=== PATIENT | female | born 1990 | race Two or more races ===

== ENCOUNTER 2022-04-17 07:42 | Day surgery (SDC) | payer OTHER ==
[~2022-04-17] VITALS: Ht 165.1 cm; Wt 57.2 kg
[2022-04-17] MEDS ORDERED: TRAM1TAB98 PO (13:20)
[2022-04-17] MEDS ORDERED: COLACE100 MG PO (13:20)
== END 2022-04-17 15:45 | disposition home or self-care (01) ==
LOC: CIR.AMB 07:42
PROVIDERS: ATTEND Surgery
DX: K64.8 Other hemorrhoids (principal); K62.89 Other specified diseases of anus and rectum; K64.1 Second degree hemorrhoids; K64.4 Residual hemorrhoidal skin tags

== ENCOUNTER 2022-04-20 17:11 | Emergency (ER) | payer OTHER ==
[~2022-04-20] VITALS: Ht 167.6 cm; Wt 59.0 kg
[~2022-04-20 17:11] MED LIST: COLACE100 MG PO; TRAM1TAB98 PO
== END 2022-04-20 23:28 | disposition home or self-care (01) ==
LOC: ER 17:11
DX: K62.89 Other specified diseases of anus and rectum (principal); R42 Dizziness and giddiness; M79.605 Pain in left leg; M79.604 Pain in right leg; R11.2 Nausea with vomiting, unspecified

== ENCOUNTER 2023-10-19 11:24 | Emergency (ER) | payer OTHER ==
[~2023-10-19] VITALS: Ht 165.1 cm; Wt 68.0 kg
[2023-10-19 12:24] LABS: HEMOGLOBIN 12.6 g/dL (12.0-15.00); MEAN CELL VOLUME 89.8 fL (80.00-100.00); MEAN CORPUSCULAR HEMOGLOBIN 31.4 pg (27.00-32.0); MEAN CORPUSCULAR HGB CONC 34.9 g/dl (32.0-36.0); PLATELET COUNT 258 K/uL (150-450); RED BLOOD COUNT 4.01 M/uL (4.00-6.00); RED CELL DISTRIBUTION WIDTH 13.8 % (11.5-14.5)
[2023-10-19 12:43] LABS: INR 1.01; PARTIAL THROMBOPLASTIN TIME 29.7 SECONDS (22.0-34.0)
[2023-10-19 12:46] LABS: CALCIUM 9.3 mg/dL (8.5-10.1); CREATININE SERUM 0.57 mg/dL (0.55-1.02); GFR 122.15; POTASSIUM 4.42 mEq/L (3.5-5.1)
[2023-10-19 13:11] LABS: PH,URINE 5.5 (5.0-8.0); URINE APPEARANCE Clear; URINE BILIRRUBIN Negative (NEGATIVE); URINE BLOOD Negative; URINE COLOR Yellow; URINE GLUCOSE Negative (NEGATIVE); URINE KETONE Trace (NEGATIVE); URINE LEUKOCYTE Small; URINE NITRATE Negative; URINE PROTEIN Negative (NEGATIVE); URINE UROBILINOGEN 0.2 E.U./dl
[2023-10-19 13:15] LABS: URINE BACTERIA 1485.3 uL (0.0-1933); URINE EPITHELIAL CELLS 29.9 uL (0.0-38.8); URINE RBC 2.7 uL (0.0-20.8); URINE WBC 40.3 uL (0.0-23.2)
[2023-10-19 13:43] LABS: URINE CAST 0.15 uL (0.0-1.40)
== END 2023-10-19 17:06 | disposition home or self-care (01) ==
LOC: ER 11:26
PROVIDERS: Emergency Medicine
DX: O20.9 Hemorrhage in early pregnancy, unspecified (principal); Z3A.10 10 weeks gestation of pregnancy

== ENCOUNTER → 2023-11-10 10:54 | Outpatient (CLI) | payer OTHER | END | disposition home or self-care (01) | LOC: PRENATAL 10:54 | PROVIDERS: ATTEND Obstetrics & Gynecology Maternal & Fetal Medicine | DX: O36.80X0 Pregnancy with inconclusive fetal viability, not applicable or unspecified (principal); Z36.82 Encounter for antenatal screening for nuchal translucency; Z36.9 Encounter for antenatal screening, unspecified; Z14.8 Genetic carrier of other disease; Z3A.13 13 weeks gestation of pregnancy ==

== ENCOUNTER 2023-12-15 12:48 | Emergency (ER) | payer OTHER ==
[~2023-12-15] VITALS: Ht 165.1 cm; Wt 68.0 kg
[2023-12-15 13:23] VITALS: BP 104/69; O2SAT 98
[2023-12-15] MEDS ORDERED: PRENA1 TRUE CO1 EACH (13:23)
[2023-12-15] MEDS ORDERED: FOLIC ACID20 MG (13:23)
[2023-12-15] MEDS ORDERED: FAMOtidine 10 MG/ML (4ML VIAL) IV STA (14:18)
[2023-12-15] MEDS ORDERED: 0.9 % SODIUM CHLORIDE 1,000 ML IV STA (14:19)
[2023-12-15] MEDS ORDERED: ONDANSETRON HCL 2 MG/ML VIAL IV ONE (14:30)
[2023-12-15 14:38] LABS: HEMATOCRIT 30.3 % (36.0-45.00); HEMOGLOBIN 10.9 g/dL (12.0-15.00); MEAN CORPUSCULAR HEMOGLOBIN 32.2 pg (27.00-32.0); MEAN CORPUSCULAR HGB CONC 35.8 g/dl (32.0-36.0); PLATELET COUNT 240 K/uL (150-450); RED BLOOD COUNT 3.37 M/uL (4.00-6.00); RED CELL DISTRIBUTION WIDTH 13.2 % (11.5-14.5)
[2023-12-15 14:53] LABS: CALCIUM 9.1 mg/dL (8.5-10.1); CREATININE SERUM 0.5 mg/dL (0.55-1.02); GFR 142.09; POTASSIUM 3.88 mEq/L (3.5-5.1)
[2023-12-15 15:11] LABS: PH,URINE 5.5 (5.0-8.0); URINE APPEARANCE Clear; URINE BILIRRUBIN Negative (NEGATIVE); URINE BLOOD Negative; URINE COLOR Yellow; URINE GLUCOSE Negative (NEGATIVE); URINE KETONE Negative (NEGATIVE); URINE LEUKOCYTE Negative; URINE NITRATE Negative; URINE PROTEIN Negative (NEGATIVE); URINE UROBILINOGEN 0.2 E.U./dl
[2023-12-15 15:15] LABS: URINE BACTERIA 516.4 uL (0.0-1933); URINE EPITHELIAL CELLS 9.4 uL (0.0-38.8); URINE RBC 3.6 uL (0.0-20.8); URINE WBC 7.4 uL (0.0-23.2)
[2023-12-15 15:16] LABS: URINE CAST 0.15 uL (0.0-1.40)
[2023-12-15] MEDS ORDERED: PEPCID AC20 MG PO (16:14)
[2023-12-15] MEDS ORDERED: ONDANSETRON ODT8 MG PO (16:14)
== END 2023-12-15 16:25 | disposition home or self-care (01) ==
LOC: ER 12:50
PROVIDERS: General Practice
DX: O21.0 Mild hyperemesis gravidarum (principal); Z3A.18 18 weeks gestation of pregnancy

== ENCOUNTER 2023-12-22 08:10 | Outpatient (CLI) | payer OTHER ==
[~2023-12-22 08:10] MED LIST changes: +FOLIC ACID20 MG; +ONDANSETRON ODT8 MG PO; +PEPCID AC20 MG PO; +PRENA1 TRUE CO1 EACH
== END 2023-12-22 08:12 | disposition home or self-care (01) ==
LOC: PRENATAL 08:10
PROVIDERS: ATTEND Obstetrics & Gynecology Maternal & Fetal Medicine
DX: O44.00 Complete placenta previa NOS or without hemorrhage, unspecified trimester (principal); O43.90 Unspecified placental disorder, unspecified trimester; O21.0 Mild hyperemesis gravidarum; Z3A.19 19 weeks gestation of pregnancy

== ENCOUNTER 2024-02-18 15:10 | Outpatient (CLI) | payer OTHER | END 2024-02-18 15:11 | disposition home or self-care (01) | LOC: PRENATAL 15:10 | PROVIDERS: ATTEND Obstetrics & Gynecology Maternal & Fetal Medicine | DX: O26.849 Uterine size-date discrepancy, unspecified trimester (principal); O43.90 Unspecified placental disorder, unspecified trimester; O21.0 Mild hyperemesis gravidarum; O32.9XX0 Maternal care for malpresentation of fetus, unspecified, not applicable or unspecified; Z3A.28 28 weeks gestation of pregnancy ==